=== PATIENT | female | born 1985 | race Caucasian/White ===

== ENCOUNTER 2017-01-26 14:54 | Emergency (ER) | payer OTHER | END 2017-01-26 16:11 | disposition home or self-care (01) | LOC: ER1 14:54 | DX: S16.1XXA Strain of muscle, fascia and tendon at neck level, initial encounter (principal); V43.52XA Car driver injured in collision with other type car in traffic accident, initial encounter | CPT/HCPCS: 72040; 99284 ==

== ENCOUNTER 2020-10-13 05:43 | Inpatient (IN) | payer OTHER ==
[~2020-10-13] VITALS: Ht 154.9 cm; Wt 71.7 kg
[2020-10-13 06:37] LABS: HEMOGLOBIN 12.1 gm/dl (12.3-15.3); RED BLOOD COUNT 3.7 M/UL (4.00-5.10); WHITE BLOOD COUNT 10.7 K/UL (4.5-11.0)
[2020-10-13] MEDS ORDERED: IBUPROFEN800 MG PO (06:37)
[2020-10-13] MEDS ORDERED: HYDROCODON-ACE1 EAC4 PO (06:37)
[2020-10-13] MEDS ORDERED: DOCUSATE SODIU100 MG PO (06:37)
[2020-10-13] MEDS ORDERED: IRON325 M1 PO (07:38)
[2020-10-13] MEDS ORDERED: PRENATABS FA T1 EACH PO (07:40)
[2020-10-13] MEDS ORDERED: PRILOSEC OTC20 MG PO (07:41)
[2020-10-13] MEDS ORDERED: SENOKOT-S TABL1 EACH PO (07:41)
[2020-10-14 05:55] LABS: HEMOGLOBIN 9.8 gm/dl (12.3-15.3)
== END 2020-10-14 18:40 | disposition home or self-care (01) | DRG 788 ==
LOC: OB 05:43
PROVIDERS: Obstetrics & Gynecology; ADMIT Obstetrics & Gynecology
PROC: 10D00Z1 Extraction of Products of Conception, Low, Open Approach (ICD-10-PCS; 2020-10-13)
PROC: 4A1HX4Z Monitoring of Products of Conception, Cardiac Electrical Activity, External Approach (ICD-10-PCS; principal; 2020-10-13 08:00)
DX: O34.211 Maternal care for low transverse scar from previous cesarean delivery (principal); N85.8 Other specified noninflammatory disorders of uterus; Z3A.39 39 weeks gestation of pregnancy; Z37.0 Single live birth; Z23 Encounter for immunization; Z20.822 Contact with and (suspected) exposure to COVID-19
CPT/HCPCS: 36415; 81001; 82800; 85014; 85018; 85025; C9113; J0690; J1170; J1885; J2405; J2550; J2590; J3010; J7120

== ENCOUNTER → 2021-04-06 | Outpatient (CLI) | payer OTHER ==
[~2021-04-06] MED LIST: DOCUSATE SODIU100 MG PO; HYDROCODON-ACE1 EAC4 PO; IBUPROFEN800 MG PO; IRON325 M1 PO; PRENATABS FA T1 EACH PO; PRILOSEC OTC20 MG PO; SENOKOT-S TABL1 EACH PO
[2021-04-06 16:39] LABS: RED BLOOD COUNT 4.4 M/UL (4.00-5.10); WHITE BLOOD COUNT 4.2 K/UL (4.5-11.0)
[2021-04-06 17:02] LABS: BUN/CREATININE RATIO 17 (0-10)
== END ==
LOC: LAB 15:07
PROVIDERS: Nurse Practitioner
DX: R06.02 Shortness of breath (principal); R07.9 Chest pain, unspecified; R42 Dizziness and giddiness
CPT/HCPCS: 71046; 80053; 82550; 84443; 85025; 93005